=== PATIENT | female | born 1985 | race Asian ===

== ENCOUNTER 2019-10-16 12:23 | Emergency (ER) | payer BC ==
[~2019-10-16] VITALS: Ht 157.5 cm; Wt 78.5 kg
[2019-10-16 12:26] VITALS: BP 120/78
--- NOTE | 2019-10-16 12:27 | NUR ---
DANIELLE KERR ALS TO ER BED 04
--- NOTE | 2019-10-16 12:35 | NUR ---
34/F biba from [employer] patient works, c/o sudden onset of substernal chest pain, non radiating, 03/07. Pt has hx of thryoid CA and mitro valve replacement. Denies chest pain upon arrival. Awake and alert appropriate to age. VSS. Pt did not receive any ASA or nitro prior to arrival.
--- NOTE | 2019-10-16 13:45 | NUR ---
PT RESTING IN BED, SIDE RAIL X1
[2019-10-16 14:07] VITALS: BP 120/78
--- NOTE | 2019-10-16 14:07 | NUR ---
Patient discharged with v/s stable. Written and verbal after care instructions given and explained. Patient verbalized understanding. Ambulatory with steady gait. All questions addressed prior to discharge. Advised to follow up with PMD.
== END 2019-10-16 14:07 | disposition home or self-care (01) ==
LOC: MED 12:23
DX: R07.9 Chest pain, unspecified (principal); R20.0 Anesthesia of skin; Z88.0 Allergy status to penicillin; Z88.1 Allergy status to other antibiotic agents; Z85.850 Personal history of malignant neoplasm of thyroid; Z98.890 Other specified postprocedural states
CPT/HCPCS: 71045; 93005; 99283; Q0092